=== PATIENT | female | born 2000 | race Caucasian/White ===

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

== ENCOUNTER 2018-05-10 08:59 | Outpatient (CLI) | payer BC ==
[2018-05-10 17:28] LABS: BASOPHILS # (AUTO) 0.1 10^3/uL (0.0-0.1); BASOPHILS % (AUTO) 0.9 %; EOSINOPHILS # (AUTO) 0.1 10^3/uL (0.0-0.7); EOSINOPHILS % (AUTO) 1.9 %; HGB - HEMOGLOBIN 13.3 g/dL (12.0-16.0); LYMPHOCYTES # (AUTO) 1.9 10^3/uL (1.5-3.5); LYMPHOCYTES % (AUTO) 25.6 %; MEAN CORPUSCULAR HEMOGLOBIN 31.3 pg (27.0-31.0); MEAN CORPUSCULAR HGB CONC 34.6 g/dL (32.0-36.0); MEAN CORPUSCULAR VOLUME 90.5 fL (81.0-99.0); MEAN PLATELET VOLUME 8.8 fL (7.9-10.8); MONOCYTES # (AUTO) 0.5 10^3/uL (0.0-1.0); MONOCYTES % (AUTO) 6.7 %; NEUTROPHILS # (AUTO) 4.8 10^3/uL (1.5-6.6); NEUTROPHILS % (AUTO) 64.9 %; PLT - PLATELET COUNT 346 10^3/uL (130-450); RED BLOOD COUNT 4.26 10^6/uL (4.20-5.40); RED CELL DISTRIBUTION WIDTH 12.4 % (12.0-15.0); WHITE BLOOD COUNT 7.3 x10^3/uL (4.8-10.8)
[2018-05-10 17:54] LABS: ALBUMIN 4.6 g/dL (3.2-5.5); ALBUMIN/GLOBULIN RATIO 1.5 (1.0-2.2); BILIRUBIN,TOTAL 0.5 mg/dL (0.2-1.0); CALCIUM 9.3 mg/dL (8.5-10.3); CREATININE 0.8 mg/dL (0.4-1.0); TOTAL PROTEIN 7.6 g/dL (6.7-8.2)
[2018-05-10 18:30] LABS: HB2 TOTAL 14.1 g/dL; HEMOGLOBIN A1C 0.5 g/dL; HEMOGLOBIN A1C % 5.4 % (4.6-6.2)
== END 2018-05-10 09:00 | disposition home or self-care (01) ==
LOC: LAB.F 08:59
PROVIDERS: ATTEND Nurse Practitioner Family
DX: R42 Dizziness and giddiness (principal); F32.9 Major depressive disorder, single episode, unspecified
CPT/HCPCS: 36415; 80053; 83036; 84443; 85025

== ENCOUNTER 2018-08-16 15:53 | Outpatient (CLI) | payer OTHER ==
[2018-08-17 12:42] LABS: HEPATITIS B SURFACE ANTIGEN NON-REACTIVE (NON-REACTIVE)
[2018-08-17 12:43] LABS: HEPATITIS C ANTIBODY NON-REACTIVE (NON-REACTIVE)
[2018-08-17 13:21] LABS: HIV AG/AB 4TH GEN NON-REACTIVE (NON-REACTIVE)
[2018-08-18 13:10] LABS: HSV 1 IGG TYPE SPECIFIC AB <0.90 index; HSV 2 IGG TYPE SPECIFIC AB <0.90 index
== END 2018-08-16 15:54 | disposition home or self-care (01) ==
LOC: LAB 15:53
PROVIDERS: ATTEND Nurse Practitioner Obstetrics & Gynecology
DX: Z11.3 Encounter for screening for infections with a predominantly sexual mode of transmission (principal)
CPT/HCPCS: 36415; 81599; 86592; 86695; 86696; 86803; 87340; 87389

== ENCOUNTER 2018-08-17 08:00 | Outpatient (CLI) | payer OTHER | END 2018-08-17 23:59 | disposition home or self-care (01) | LOC: LAB.R 08:00 | PROVIDERS: ATTEND Nurse Practitioner Obstetrics & Gynecology | DX: N76.0 Acute vaginitis (principal); Z11.3 Encounter for screening for infections with a predominantly sexual mode of transmission | CPT/HCPCS: 87480; 87491; 87510; 87591; 87660 ==

== ENCOUNTER 2019-01-28 | Outpatient (CLI) | payer OTHER | END 2019-01-28 07:12 | disposition home or self-care (01) ==

== ENCOUNTER 2019-03-16 08:00 | Outpatient (CLI) | payer OTHER | END 2019-03-16 23:59 | LOC: LAB.R 08:00 | PROVIDERS: ATTEND Family Medicine | DX: N39.0 Urinary tract infection, site not specified (principal) | CPT/HCPCS: 87077; 87086 ==

== ENCOUNTER 2019-03-19 21:55 | Emergency (ER) | payer OTHER ==
[2019-03-19 22:52] LABS: BILIRUBIN,URINE NEGATIVE (NEGATIVE); GLUCOSE, URINE (UA) NEGATIVE (NEGATIVE); KETONES,URINE (UA) NEGATIVE (NEGATIVE); LEUKOCYTE ESTERASE, URINE NEGATIVE (NEGATIVE); NITRITE,URINE NEGATIVE (NEGATIVE); OCCULT BLOOD,URINE NEGATIVE (NEGATIVE); PROTEIN,URINE NEGATIVE (NEGATIVE); UROBILINOGEN,URINE 0.2 (NORMAL) E.U./dL (NORMAL)
[2019-03-19 22:54] LABS: CLARITY,URINE CLEAR (CLEAR); HCG UR QUAL NEGATIVE
--- NOTE | 2019-03-19 23:53 | ED Physician Documentation ---
PD HPI BACK PAIN - Stated complaint Stated Complaint: BK PX - Chief complaint Chief Complaint: Back Pain - History obtained from History obtained from: Patient - History of Present Illness Timing - onset: How many days ago (5) Timing - duration: Days (5) Timing - details: Abrupt onset, Waxing and waning Pain level now: 6 Location: Lower, Right, Left Quality: Pain Associated symptoms: No: Fever, Weakness, Numbness, Hematuria Improves with: Nothing Worsened by: Other (urination) Recently seen: Clinic - Additional information Additional information: returned from [place] last weekend. 5 days ago (Thursday), she had sudden onset of painful dysuria. This was then recurrent (burning pain with urination) and thus seen at [facility] 3 days ago, rx macrobid. Presents due to worsening pain across mid/lower back, significantly worse on right. The dysuria has improved. Review of Systems Constitutional: denies: Fever, Chills, Sweats GI: denies: Abdominal Pain, Nausea, Vomiting : reports: Dysuria. denies: Frequency, Hematuria Skin: denies: Rash Musculoskeletal: reports: Back pain PD PAST MEDICAL HISTORY - Past Medical History Past Medical History: Yes Cardiovascular: None Respiratory: None Neuro: None Endocrine/Autoimmune: None GI: None SEO ANALYST: None : Other HEENT: None Psych: None Musculoskeletal: None Derm: None - Past Surgical History Past Surgical History: Yes - Present Medications Home Medications: Ambulatory Orders Medication Instructions Recorded Confirmed Cephalexin [Keflex] 500 mg PO BID #14 capsule 08/07/16 Penicillin V Potassium 500 mg PO BID #14 tablet 08/07/16 Hydrocodone/Acetaminophen 1 each PO Q6HR PRN #14 tablet 03/20/19 [Hydrocodone-Acetamin 5-325 mg] - Allergies Allergies/Adverse Reactions: Allergies Allergy/AdvReac Type Severity Reaction Status Date / Time codeine Allergy Unknown Verified 06/21/16 13:38 latex Allergy Unknown Verified 06/21/16 13:38 Sulfa (Sulfonamide Allergy Hives Verified 06/21/16 13:39 Antibiotics) - Social History Does the pt smoke?: No Smoking Status: Never smoker Does the pt drink ETOH?: No Does the pt have substance abuse?: No - Immunizations Immunizations are current?: Yes - POLST Patient has POLST: No PD ED PE NORMAL - Vitals Vital signs reviewed: Yes - General General: Alert and oriented X 3, No acute distress, Well developed/nourished - Abdomen Abdomen: Soft, Non tender - Back Back: No CVA TTP, No spinal TTP, Other - Derm Derm: Normal color, Warm and dry, No rash - Extremities Extremities: No edema Results - Vitals Vitals: Vital Signs - 24 hr 03/19/19 03/19/19 03/19/19 22:05 22:52 23:58 Temperature 37.0 C Heart Rate 86 Respiratory 17 16 17 Rate Blood Pressure 142/91 H O2 Saturation 100 03/20/19 03/20/19 00:23 01:47 Temperature 36.5 C 36.5 C Heart Rate 92 84 Respiratory 17 16 Rate Blood Pressure 144/91 H 137/84 H O2 Saturation 98 98 Oxygen O2 Source Room air - Labs Labs: Laboratory Tests 03/19/19 22:45 Urine Color YELLOW Urine Clarity CLEAR Urine pH 7.0 Ur Specific [place] 1.010 Urine Protein NEGATIVE Urine Glucose (UA) NEGATIVE Urine Ketones NEGATIVE Urine Occult Blood NEGATIVE Urine Nitrite NEGATIVE Urine Bilirubin NEGATIVE Urine Urobilinogen 0.2 (NORMAL) Ur Leukocyte Esterase NEGATIVE Ur Microscopic Review NOT INDICATED Urine Culture Comments NOT INDICATED Urine HCG, Qual NEGATIVE - Rads (name of study) CT A/P Radiology: Prelim report reviewed, See rad report PD MEDICAL DECISION MAKING - ED course Complexity details: reviewed results, re-evaluated patient, considered differential, d/w patient Departure - Departure Disposition: 01 Home, Self Care Clinical Impression: Back pain, Flank pain Condition: Good Instructions: ED Flank Pain Uncertain Cause Follow-Up: Caryl Mulligan ARNP [Primary Care Provider] - Within 3 Days Prescriptions: Hydrocodone/Acetaminophen [Hydrocodone-Acetamin 5-325 mg] 1 each PO Q6HR PRN #14 tablet PRN Reason: Pain Comments: Your CT scan shows multiple small kidney stones; however, these are located in the kidneys and therefore are not causing symptoms at this time (pain from a kidney stone occurs when the stone is in the ureter, which is the tube that connects the kidney to the bladder. Your CT scan does not show any stones in either ureter at this time). Discharge Date/Time: 03/20/19 01:51
[2019-03-20] MEDS ORDERED: KETOROLAC 60 MG/2 ML VIAL IM STA (00:09)
--- NOTE | 2019-03-20 00:45 | CT Report ---
Reason: right flank pain Procedure Date: 03/20/2019 Accession Number: [id number] / [id number] Procedure: CT - Abdomen/Pelvis WO CPT Code: FULL RESULT: EXAM: CT ABDOMEN AND PELVIS (CT KUB) EXAM DATE: 03/20/2019 12:21 AM. CLINICAL HISTORY: Right flank pain. COMPARISONS: None. TECHNIQUE: Routine axial helical CT imaging was performed through the abdomen and pelvis without IV contrast. Reconstructions: Coronal and sagittal. In accordance with CT protocol optimization, one or more of the following dose reduction techniques were utilized for this exam: automated exposure control, adjustment of mA and/or KV based on patient size, or use of iterative reconstructive technique. FINDINGS: Lung Bases: Unremarkable. Kidney/Ureters: Several small bilateral nonobstructing renal stones measuring up to 2 x 2 mm on the right. No definitive ureteral stone or hydronephrosis. Incidental duplicated left kidney. Other Solid Organs: Noncontrast images of the solid organs are grossly unremarkable. Gallbladder/Bile Ducts: Unremarkable. Peritoneal Cavity: No free fluid, free air or arsen adenopathy. Bowel is grossly unremarkable with note of moderate stool burden. Normal appendix. Pelvic Organs: No bladder stones or wall thickening. Noncontrast images of the visualized pelvic organs are unremarkable with note of an IUD. Vasculature: Unremarkable. Other: None. IMPRESSION: 1. Several small bilateral nonobstructing renal stones without definitive ureteral stone or hydronephrosis. 2. Moderate stool burden. RADIA
[2019-03-20] MEDS ORDERED: HYDROcod/ACET 5/325 Prepack 4 PO STA (01:30)
[2019-03-20 01:47] VITALS: BP 137/84
== END 2019-03-20 01:51 | disposition home or self-care (01) ==
LOC: ED 21:55
DX: M54.5 Low back pain (principal); R10.9 Unspecified abdominal pain
CPT/HCPCS: 74176; 81001; 81003; 81025; 87086; 96372; 99284

== ENCOUNTER 2020-03-06 19:30 | Outpatient (CLI) | payer OTHER | END 2020-03-06 23:59 | LOC: SC 19:30 | PROVIDERS: ATTEND Internal Medicine Pulmonary Disease | DX: G47.10 Hypersomnia, unspecified (principal); R53.83 Other fatigue; R51 Headache; R41.89 Other symptoms and signs involving cognitive functions and awareness | CPT/HCPCS: 95806 ==

== ENCOUNTER 2020-04-13 17:52 | Outpatient (CLI) | payer OTHER ==
--- NOTE | 2020-04-13 16:33 | SLEEP CARE CONSULTATION ---
"Information from patient questionnaire entered by Dottie Messina. I have reviewed and concur with the information entered by Dottie Messina. This document represents the service I personally performed and the decisions made by , Marquita oNlasco ARNP. History of Present Illness Service Date and Time: 04/13/2020 1620 Initial [place] Sleepiness Scale score: 6 Current [place] Sleepiness Scale score: 6 Additional HPI information: QUINTIN BROWN visits via Telehealth today for follow up and results of the recently performed home sleep study. The patient was informed of the following findings: Patient had no significant sleep disordered breathing with an average AHI 1.8 and selina oxygen saturation of 78.1% and average oxygen saturation of 97.6%. I explained the pathophysiology behind obstructive sleep apnea. Patient does not have sleep apnea and was advised how weight gain could increase the risk of developing sleep apnea in the future. Patient counseled not drink alcohol less than 4 hours before bedtime as it can increase snoring and apnea. Patient denies drowsy driving. Sleep Study - Results Type of Sleep Study: Home sleep study Prior sleep studies: Yes Year and Where: 2019 [facility] Allergies and Home Medications Drug allergies reviewed: Yes (same) Home medication list reviewed: Yes (no changes) Review of Systems Review of systems same as previous: Yes (no changes) Physical Exam Height: 5 ft 4 in Impression and Plan 1. Fatigue, of unclear etiology. Patient sleep study negative for sleep disordered breathing. Chronic fatigue may have many causes, but she does not appear to have sleep apnea or snoring issues. She was advised to follow up with her PCP for further evaluation of cause of her fatigue. * Attempt to lose weight * Avoid alcohol consumption near bedtime * The patient is cautioned about driving until sleepiness is completely resolved. * Return as needed for worsening symptoms or change in symptoms. Follow up with: PCP Visit Type: Telehealth Video Video Type: SL[employer]Z | [employer] Patient Location: Home Location of Provider: Home Patient agrees and consents to this telehealth visit type: Yes Patient agrees to have their insurance billed: Yes Time Spent with Patient (minutes): 15 Provider Statement: I spent 100% of the Telehealth Video Call with the patient with greater than 50% spent counseling the patient and coordination of care."
== END 2020-04-13 17:53 | disposition home or self-care (01) ==
LOC: SC 17:52
PROVIDERS: ATTEND Nurse Practitioner Family
DX: R53.83 Other fatigue (principal)

== ENCOUNTER 2020-09-01 08:09 | Outpatient (CLI) | payer OTHER ==
--- NOTE | 2020-09-01 10:59 | Ultrasound Report ---
PROCEDURE: Pelvic w/Transvaginal INDICATIONS: IUD SUVEILLANCE TECHNIQUE: Real-time scanning was performed of the pelvic organs, with image documentation. Additional endovagi nal scanning was necessary due to incomplete visualization of the adnexal and endometrial structures by transabdominal scanning. COMPARISON: None. FINDINGS: No pathologic free abdominal or pelvic fluid. Uterus: Uterus is normal in size at 7.0 x 3.2 x 4.2 cm. Uterine volume is 48.9 mL. The endometrium m easures 4 mm in combined thickness. Satisfactory location of IUD. Ovaries: Right ovary measures 5.0 x 2.7 x 3.7 cm and contains a prominent cyst measuring 4.4 x 2.0 x 2.6 cm. Left ovary measures 3.1 x 2.2 x 2.2 cm. There is bilateral intraovarian flow. IMPRESSION: 1. IUD in satisfactory position. 2. Incidental note made of 4.4 cm maximum diameter right ovarian cyst. Reviewed by: Christian Marcum MD on 09/01/2020 9:57 AM [facility] Approved by: Christian Marcum MD on 09/01/2020 9:57 AM [facility] Station ID: [id number]
== END 2020-09-01 08:10 | disposition home or self-care (01) ==
LOC: DI 08:09
PROVIDERS: ATTEND Obstetrics & Gynecology
DX: Z30.431 Encounter for routine checking of intrauterine contraceptive device (principal)

== ENCOUNTER 2020-09-02 07:00 | Outpatient (CLI) | payer OTHER | END 2020-09-02 23:59 | disposition home or self-care (01) | LOC: COV 07:00 | PROVIDERS: ATTEND Physician Assistant | DX: J02.9 Acute pharyngitis, unspecified (principal); Z20.822 Contact with and (suspected) exposure to COVID-19 | CPT/HCPCS: 87070; 87275; 87276 ==

== ENCOUNTER 2020-11-20 07:14 | Outpatient (CLI) | payer OTHER ==
[2020-11-20 15:05] LABS: BASOPHILS # (AUTO) 0.1 10^3/uL (0.0-0.1); BASOPHILS % (AUTO) 1.1 %; EOSINOPHILS # (AUTO) 0.2 10^3/uL (0.0-0.7); EOSINOPHILS % (AUTO) 3.8 %; HCT - HEMATOCRIT 38.8 % (37.0-47.0); HGB - HEMOGLOBIN 12.7 g/dL (12.0-16.0); LYMPHOCYTES # (AUTO) 1.1 10^3/uL (1.5-3.5); LYMPHOCYTES % (AUTO) 18.7 %; MEAN CORPUSCULAR HEMOGLOBIN 31.1 pg (27.0-31.0); MEAN CORPUSCULAR HGB CONC 32.7 g/dL (32.0-36.0); MEAN CORPUSCULAR VOLUME 95.1 fL (81.0-99.0); MEAN PLATELET VOLUME 10.6 fL (7.9-10.8); MONOCYTES # (AUTO) 0.7 10^3/uL (0.0-1.0); MONOCYTES % (AUTO) 11.5 %; NEUTROPHILS % (AUTO) 64.7 %; PLT - PLATELET COUNT 375 10^3/uL (130-450); RED BLOOD COUNT 4.08 10^6/uL (4.20-5.40); WHITE BLOOD COUNT 6.1 x10^3/uL (4.8-10.8)
[2020-11-20 15:26] LABS: ALBUMIN 4.7 g/dL (3.2-5.5); ALBUMIN/GLOBULIN RATIO 1.4 (1.0-2.2); BILIRUBIN,TOTAL 0.4 mg/dL (0.2-1.0); CALCIUM 9.1 mg/dL (8.5-10.3); CREATININE 0.8 mg/dL (0.4-1.0); POTASSIUM 3.6 mmol/L (3.5-5.0)
[2020-11-20 15:35] LABS: THYROID STIMULATING HORMONE 1.87 uIU/mL (0.34-5.60)
[2020-11-20 15:40] LABS: FERRITIN 85.7 ng/mL (11.0-306.8)
== END 2020-11-20 07:15 | disposition home or self-care (01) ==
LOC: LAB.S 07:14
PROVIDERS: ATTEND Registered Nurse
DX: G43.909 Migraine, unspecified, not intractable, without status migrainosus (principal); R53.83 Other fatigue; R10.32 Left lower quadrant pain; R10.31 Right lower quadrant pain
CPT/HCPCS: 36415; 80053; 82728; 83540; 84443; 84466; 85025

== ENCOUNTER 2021-03-20 07:07 | Outpatient (CLI) | payer OTHER ==
[2021-03-20 14:29] LABS: % IRON SATURATION 32 % (20-50); IRON 84 ug/dL (28-170); TOTAL IRON BINDING CAPACITY 263 ug/dL (250-450); TRANSFERRIN 188 mg/dL (192-382)
[2021-03-20 14:41] LABS: BASOPHILS # (AUTO) 0.1 10^3/uL (0.0-0.1); BASOPHILS % (AUTO) 0.8 %; EOSINOPHILS # (AUTO) 0.1 10^3/uL (0.0-0.7); EOSINOPHILS % (AUTO) 1.8 %; HCT - HEMATOCRIT 39.8 % (37.0-47.0); HGB - HEMOGLOBIN 12.8 g/dL (12.0-16.0); LYMPHOCYTES # (AUTO) 1.7 10^3/uL (1.5-3.5); LYMPHOCYTES % (AUTO) 25.8 %; MEAN CORPUSCULAR HEMOGLOBIN 30.6 pg (27.0-31.0); MEAN CORPUSCULAR HGB CONC 32.2 g/dL (32.0-36.0); MEAN CORPUSCULAR VOLUME 95.2 fL (81.0-99.0); MEAN PLATELET VOLUME 10.7 fL (7.9-10.8); MONOCYTES # (AUTO) 0.5 10^3/uL (0.0-1.0); MONOCYTES % (AUTO) 7.6 %; NEUTROPHILS # (AUTO) 4.2 10^3/uL (1.5-6.6); NEUTROPHILS % (AUTO) 63.7 %; PLT - PLATELET COUNT 358 10^3/uL (130-450); RED BLOOD COUNT 4.18 10^6/uL (4.20-5.40); RED CELL DISTRIBUTION WIDTH 11.9 % (12.0-15.0); WHITE BLOOD COUNT 6.5 x10^3/uL (4.8-10.8)
== END 2021-03-20 07:08 | disposition home or self-care (01) ==
LOC: LAB.S 07:07
PROVIDERS: ATTEND Registered Nurse
DX: R53.83 Other fatigue (principal)
CPT/HCPCS: 36415; 83540; 84466; 85025

== ENCOUNTER 2021-06-23 08:00 | Outpatient (CLI) | payer OTHER ==
--- NOTE | 2021-06-23 14:33 | XRAY Report ---
PROCEDURE: Knee 3 View LT INDICATIONS: CONTUSION OF LEFT KNEE TECHNIQUE: 3 views of the left knee(s) were acquired. COMPARISON: None. FINDINGS: Bones: No fractures or dislocations. No suspicious bony lesions. Soft tissues: No joint effusion. No suspicious soft tissue calcifications. IMPRESSION: Normal left knee Reviewed by: Ashu Cruz on 06/23/2021 1:32 PM [facility] Approved by: Ashu Cruz on 06/23/2021 1:[address] [facility] Station ID: [id number]
== END 2021-06-23 23:59 | disposition home or self-care (01) ==
LOC: DI.S 08:00
PROVIDERS: ATTEND Physician Assistant Medical
DX: S80.02XA Contusion of left knee, initial encounter (principal)

== ENCOUNTER 2021-08-06 07:02 | Outpatient (CLI) | payer OTHER ==
[2021-08-07 12:17] LABS: HEPATITIS B SURFACE ANTIGEN NON-REACTIVE (NON-REACTIVE)
[2021-08-07 13:36] LABS: HIV AG/AB 4TH GEN NON-REACTIVE (NON-REACTIVE)
[2021-08-09 12:31] LABS: HSV 1 IGG TYPE SPECIFIC AB 0.99 index; HSV 2 IGG TYPE SPECIFIC AB <0.90 index
== END 2021-08-06 07:03 | disposition home or self-care (01) ==
LOC: LAB.S 07:02
PROVIDERS: ATTEND Obstetrics & Gynecology
DX: Z11.3 Encounter for screening for infections with a predominantly sexual mode of transmission (principal)
CPT/HCPCS: 36415; 81599; 86592; 86695; 86696; 87340; 87389

== ENCOUNTER 2022-03-25 08:00 | Outpatient (CLI) | payer OTHER ==
[2022-03-25 18:18] LABS: BACTERIAL VAGINOSIS DNA NEGATIVE (NEGATIVE); CANDIDA KRUSEI DNA NEGATIVE (NEGATIVE)
[2022-03-25 18:19] LABS: CANDIDA GLABRATA DNA NEGATIVE (NEGATIVE); CANDIDA GROUP DNA NEGATIVE (NEGATIVE); TRICHOMONAS VAGINALIS DNA NEGATIVE (NEGATIVE)
[2022-03-25 20:05] LABS: CHLAMYDIA TRACHOMATIS DNA NEGATIVE (NEGATIVE); NEISSERIA GONORRHOEAE DNA NEGATIVE (NEGATIVE)
== END 2022-03-25 23:59 | disposition home or self-care (01) ==
LOC: LAB.WC 08:00
PROVIDERS: ATTEND Nurse Practitioner
DX: N89.8 Other specified noninflammatory disorders of vagina (principal)
CPT/HCPCS: 81514; 87491; 87591; 87661

== ENCOUNTER 2022-03-25 13:37 | Outpatient (CLI) | payer OTHER ==
[2022-03-25 13:52] LABS: HCT - HEMATOCRIT 40.7 % (37.0-47.0); HGB - HEMOGLOBIN 13.8 g/dL (12.0-16.0); MEAN CORPUSCULAR HEMOGLOBIN 31.3 pg (27.0-31.0); MEAN CORPUSCULAR HGB CONC 33.9 g/dL (32.0-36.0); MEAN CORPUSCULAR VOLUME 92.3 fL (81.0-99.0); RED BLOOD COUNT 4.41 10^6/uL (4.20-5.40); RED CELL DISTRIBUTION WIDTH 11.4 % (12.0-15.0); WHITE BLOOD COUNT 10.1 x10^3/uL (4.8-10.8)
[2022-03-26 09:44] LABS: ALBUMIN 4.7 g/dL (3.2-5.5); ALBUMIN/GLOBULIN RATIO 1.6 (1.0-2.2); BILIRUBIN,TOTAL 0.4 mg/dL (0.2-1.0); CALCIUM 9.5 mg/dL (8.5-10.3); CREATININE 0.8 mg/dL (0.4-1.0); POTASSIUM 3.8 mmol/L (3.5-5.0); TOTAL PROTEIN 7.7 g/dL (6.7-8.2)
== END 2022-03-25 13:38 | disposition home or self-care (01) ==
LOC: LAB 13:37
PROVIDERS: ATTEND Nurse Practitioner
DX: D64.9 Anemia, unspecified (principal); N89.8 Other specified noninflammatory disorders of vagina; N93.9 Abnormal uterine and vaginal bleeding, unspecified; Z84.1 Family history of disorders of kidney and ureter
CPT/HCPCS: 36415; 80053; 81514; 82728; 85027; 87491; 87591; 87661

== ENCOUNTER 2022-04-02 18:41 | Outpatient (CLI) | payer OTHER ==
--- NOTE | 2022-04-03 16:21 | Ultrasound Report ---
PROCEDURE: Pelvic w/Transvaginal INDICATIONS: IUD SURVEILLANCE, ABN UTERINE BLEEDING TECHNIQUE: Real-time scanning was performed of the pelvic organs, with image documentation. Additional endovagi nal scanning was necessary due to incomplete visualization of the adnexal and endometrial structures by transabdominal scanning. COMPARISON: None. FINDINGS: Uterus: Uterus is anteverted and normal in size at 8.5 x 3.0 x 4.6 cm. The myometrium is homogeneou s. The endometrium measures 4.1 mm in combined thickness. IUD is present in appropriate position Ovaries: The right ovary measures 5.4 x 3.4 x 5.4 cm, with a calculated ovarian volume of 52 cc. Th e left ovary measures 3.6 x 1.7 x 3.4 cm, with a calculated ovarian volume of 10.8 cc. Complex focus of echogenicity is noted within the right ovary. Less than 12 follicles can be seen in each ovary. N o adnexal masses are seen. Other: No pathologic free abdominal or pelvic fluid. IMPRESSION: IUD in appropriate position. Complex focus of echogenicity within the right ovary possibly hemorrhagic cyst. Reviewed by: Ashley Isaacs MD on 04/03/2022 4:20 PM PDT Approved by: Ashley Isaacs MD on 04/03/2022 4:20 PM PDT Station ID: [id number]
== END 2022-04-02 18:42 | disposition home or self-care (01) ==
LOC: DI 18:41
PROVIDERS: ATTEND Nurse Practitioner
DX: N93.9 Abnormal uterine and vaginal bleeding, unspecified (principal); R10.2 Pelvic and perineal pain; Z30.431 Encounter for routine checking of intrauterine contraceptive device

== ENCOUNTER 2022-06-09 08:28 | Outpatient (CLI) | payer OTHER ==
[2022-06-09 08:47] LABS: BASOPHILS # (AUTO) 0.1 10^3/uL (0.0-0.1); BASOPHILS % (AUTO) 0.6 %; EOSINOPHILS # (AUTO) 0.1 10^3/uL (0.0-0.7); EOSINOPHILS % (AUTO) 0.9 %; HCT - HEMATOCRIT 37.2 % (37.0-47.0); HGB - HEMOGLOBIN 12.7 g/dL (12.0-16.0); LYMPHOCYTES # (AUTO) 1.8 10^3/uL (1.5-3.5); LYMPHOCYTES % (AUTO) 22.6 %; MEAN CORPUSCULAR HEMOGLOBIN 31.4 pg (27.0-31.0); MEAN CORPUSCULAR HGB CONC 34.1 g/dL (32.0-36.0); MEAN CORPUSCULAR VOLUME 91.9 fL (81.0-99.0); MEAN PLATELET VOLUME 9.6 fL (7.9-10.8); MONOCYTES # (AUTO) 0.6 10^3/uL (0.0-1.0); MONOCYTES % (AUTO) 6.7 %; NEUTROPHILS # (AUTO) 5.6 10^3/uL (1.5-6.6); NEUTROPHILS % (AUTO) 69.1 %; PLT - PLATELET COUNT 312 10^3/uL (130-450); RED BLOOD COUNT 4.05 10^6/uL (4.20-5.40); RED CELL DISTRIBUTION WIDTH 11.7 % (12.0-15.0); WHITE BLOOD COUNT 8.2 x10^3/uL (4.8-10.8)
== END 2022-06-09 08:29 | disposition home or self-care (01) ==
LOC: LAB 08:28
PROVIDERS: ATTEND Obstetrics & Gynecology
DX: Z01.812 Encounter for preprocedural laboratory examination (principal); N83.291 Other ovarian cyst, right side
CPT/HCPCS: 36415; 85025; 86850; 86900; 86901

== ENCOUNTER 2022-06-10 08:44 | Day surgery (SDC) | payer OTHER ==
[2022-06-10 09:13] LABS: HCG UR QUAL NEGATIVE
[2022-06-10] MEDS ORDERED: BUPIVACAINE 0.25% PF 10 ML VIAL ONE (09:14)
[2022-06-10] MEDS ORDERED: LACTATED RINGERS 1,000 ML IV ONE ×2 (09:25→12:01)
[2022-06-10] MEDS ORDERED: fentaNYL 100 MCG/2 ML VIAL ONE ×2 (09:29→11:49)
[2022-06-10] MEDS ORDERED: MIDAZOLAM 2 MG/2 ML VIAL ONE (09:29)
[2022-06-10] MEDS ORDERED: ROCURONIUM 50 MG/5 ML VIAL ONE (09:30)
[2022-06-10] MEDS ORDERED: PROPOFOL 200 MG/20 ML VIAL IVP ONE (09:31)
--- NOTE | 2022-06-10 09:40 | ANESTHESIA ---
Pre-Anesthesia VS, & Labs - Diagnosis right ovarian cyst - Procedure right ovarian cystectomy, laparoscopic Vital Signs: Temp Pulse Resp BP Pulse Ox O2 Flow Rate 36.6 C 86 19 132/78 H 100 06/10/22 09:04 06/10/22 09:04 06/10/22 09:04 06/10/22 09:04 06/10/22 09:04 Height: 5 ft 3 in Weight (kg): 58.6 kg Body Mass Index: 22.8 BMI Classification: Normal - NPO >8 hours - Is Patient ?: No Home Medications and Allergies Home Medications: Ambulatory Orders Loratadine [All Day Allergy Relief] 10 mg PO DAILY PRN 06/06/22 Meloxicam [Mobic] 15 mg PO DAILY PRN 06/06/22 Loratadine [All Day Allergy Relief] 10 mg PO DAILY PRN 06/06/22 Meloxicam [Mobic] 15 mg PO DAILY PRN 06/06/22 Allergies/Adverse Reactions: Allergies Allergy/AdvReac Type Severity Reaction Status Date / Time codeine Allergy Hives Verified 06/06/22 09:49 latex Allergy Anaphylaxis Verified 06/06/22 09:49 Sulfa (Sulfonamide Allergy Hives Verified 06/21/16 13:39 Antibiotics) gluten AdvReac abdominal Verified 06/06/22 09:52 pain and bloating, migraines lactose AdvReac abdominal Verified 06/06/22 09:52 pain and bloating, migraines Anes History & Medical History - Anesthetic History Anesthesia Complications: reports: Post-Operative Nausea/Vomiting - Medical History Cardiovascular: reports: Murmur (benign murmur per patient.) Pulmonary: reports: None Gastrointestinal: reports: None Urinary: reports: None Neuro: reports: None Musculoskeletal: reports: Fatigue Endocrine/Autoimmune: reports: None Blood Disorders: reports: None Skin: reports: Eczema Smoking Status: Never smoker Psychosocial: reports: Alcohol (rare) History of Cancer?: No Exam General: Alert, Oriented x3 Dental: WNL Mouth Opening: Greater than 4 Fingerbreadths Neck Mobility: Limited Mallampati classification: II Thyromental Distance: greater than 6 cm Respiratory: Lungs clear Cardiovascular: Regular rate, Normal S1, Normal S2, Other (1/) Plan Anesthesia Type: General Consent for Procedure(s) Verified and Reviewed: Yes Code Status: Attempt Resuscitation ASA classification: 2-Mild systemic disease Is this case an emergency?: No
[2022-06-10] MEDS ORDERED: NALOXONE 0.4 MG/ML VIAL IVP PRN (09:48)
[2022-06-10] MEDS ORDERED: fentaNYL 100 MCG/2 ML VIAL IVP PRN (09:48)
[2022-06-10] MEDS ORDERED: ATROPINE ABBOJECT 1 MG/10 ML SYRINGE IVP PRN (09:48)
[2022-06-10] MEDS ORDERED: ePHEDrine 50 MG/ML VIAL IVP PRN (09:48)
[2022-06-10] MEDS ORDERED: METOCLOPRAMIDE 10 MG/2 ML VIAL IVP PRN (09:48)
[2022-06-10] MEDS ORDERED: MORPHINE 2 MG/ML CARPUJECT IVP PRN (09:48)
[2022-06-10] MEDS ORDERED: HYDROmorphone 0.5 MG/0.5 ML SYRINGE IVP PRN (09:48)
[2022-06-10] MEDS ORDERED: ONDANSETRON 4 MG/2 ML VIAL IVP PRN (09:48)
[2022-06-10] MEDS ORDERED: LACTATED RINGERS 1,000 ML IV SCH (10:00)
[2022-06-10] MEDS ORDERED: DEXAMETHASONE 4 MG/ML VIAL ONE (10:21)
[2022-06-10] MEDS ORDERED: KETOROLAC 30 MG/ML VIAL ONE (10:21)
[2022-06-10] MEDS ORDERED: ONDANSETRON 4 MG/2 ML VIAL ONE (10:21)
[2022-06-10] MEDS ORDERED: ACETAMINOPHEN 1,000 MG/100 ML 1,000 MG/100 ML BAG IV ONE (10:29)
[2022-06-10] MEDS ORDERED: GLYCOPYRROLATE 1 MG/5 ML VIAL ONE (10:50)
[2022-06-10] MEDS ORDERED: BUPIVACAINE 0.25% PF 10 ML VIAL SUBQ ONE ×2 (11:14)
[2022-06-10] MEDS ORDERED: NEOSTIGMINE 1 MG/1 ML 10 ML MDV ONE (11:28)
[2022-06-10] MEDS ORDERED: HYDROmorphone 0.5 MG/0.5 ML SYRINGE ONE (12:26)
--- NOTE | 2022-06-10 12:44 | ANESTHESIA POST OP EVALUATION ---
Anesthesia Post Eval - Post Anesthesia Eval Vitals: Last Vital Signs Temp 36.5 C 06/10/22 12:30 Pulse 88 06/10/22 12:35 Resp 12 06/10/22 12:35 BP 118/69 06/10/22 12:35 Pulse Ox 100 06/10/22 12:35 O2 Flow Rate CV Function Including HR & BP: Stable Pain Control: Satisfactory Nausea & Vomiting: Negative Mental Status: Baseline Respiratory Status: Airway Patent Hydration Status: Satisfactory Anesthesia Complications: None
[2022-06-10 13:00] VITALS: BP 106/91
--- NOTE | 2022-06-10 13:57 | OPERATIVE REPORT ---
Operative Report - General Planned Procedure: Laparoscopic right ovarian cystectomy Pre-Op Diagnosis: Right ovarian cyst, pelvic pain Procedure Performed: Laparoscopic right ovarian cystectomy Post Op Diagnosis: Right ovarian cyst, pelvic pain - Procedure Note Primary Surgeon: Vicky Clarke DO Secondary Surgeon: Mihai Houser; assistance required for retraction and safe completion Anesthesia Provider: Charlie Dillon CRNA Anesthesia Technique: General ET tube Pathology: Right ovarian cyst Estimated Blood Loss (mL): 40 Indications: Right ovarian cyst, pelvic pain Findings: Right ovarian cyst ~5cm Normal appearing uterus and bilateral tubes, normal left ovary Complications: None - Other Other Information/Narrative: Patient taken to OR where GETA obtained without difficulty. Placed in dorsal lithotomy position and prepped and draped in sterile fashion. [place] speculum placed in vagina and Hulka manipulator placed into uterus. Attention then turned to abdomen where 5mm vertical skin incision made in umbilical fold. Veress needle carefully introduced into peritoneal cavity and appropriate placement with drop in intraabdominal pressure. Direct visualization entry successful. Trocar and sleeve advanced without difficulty into abdomen where intraabdominal placement confirmed with laparoscope. 5mm trocar on right side and 11mm trocar on left side placed under direct visualization. 0.25% bupivacaine injection prior to skin incisions x3. Aforementioned findings noted. Scissors used to make incision in right ovary. Ovary incised and cyst wall identified. Dissection continued. Cyst ruptured during dissection, clear fluid noted. Pelvis irrigated and suctioned. Cyst wall grasped and from ovary, this was sent to pathology. Most of cyst wall thin and friable but efforts made to remove entirety of cyst wall that could be grasped. Hemostasis at all dissection sites. Ramon Tomason used to close 11mm incision left side with 0-Vicryl. Trocars removed under direct visualization. Pneumoperitoneum released. Umbilical trocar removed. Incisions x3 were closed with 4-0 monocryl and dermabond. Sponge, lap, needle, and instrument counts were correct x2. Patient taken to PACU in stable condition.
== END 2022-06-10 08:45 | disposition home or self-care (01) ==
LOC: SDS 08:44
PROVIDERS: ATTEND Obstetrics & Gynecology
PROC: 0UB04ZZ Excision of Right Ovary, Percutaneous Endoscopic Approach (ICD-10-PCS; principal; 2022-06-10 11:45)
DX: N83.201 Unspecified ovarian cyst, right side (principal); R10.2 Pelvic and perineal pain
CPT/HCPCS: 58662; 81025; J0131; J1170; J7120

== ENCOUNTER 2022-12-29 08:00 | Outpatient (CLI) | payer OTHER ==
[2022-12-29 18:13] LABS: CHLAMYDIA TRACHOMATIS DNA NEGATIVE (NEGATIVE); NEISSERIA GONORRHOEAE DNA NEGATIVE (NEGATIVE)
[2022-12-29 20:48] LABS: BACTERIAL VAGINOSIS DNA NEGATIVE (NEGATIVE); CANDIDA GLABRATA DNA NEGATIVE (NEGATIVE); CANDIDA GROUP DNA POSITIVE (NEGATIVE); CANDIDA KRUSEI DNA NEGATIVE (NEGATIVE); TRICHOMONAS VAGINALIS DNA NEGATIVE (NEGATIVE)
== END 2022-12-29 23:59 | disposition home or self-care (01) ==
LOC: LAB.WC 08:00
PROVIDERS: ATTEND Nurse Practitioner
DX: N89.8 Other specified noninflammatory disorders of vagina (principal); Z11.3 Encounter for screening for infections with a predominantly sexual mode of transmission
CPT/HCPCS: 81514; 87491; 87591; 87661

== ENCOUNTER 2023-06-05 08:00 | Outpatient (CLI) | payer OTHER | END 2023-06-05 23:59 | disposition home or self-care (01) | LOC: LAB.S 08:00 | PROVIDERS: ATTEND Physician Assistant Medical | DX: J02.9 Acute pharyngitis, unspecified (principal) | CPT/HCPCS: 87070 ==

== ENCOUNTER 2023-09-17 08:00 | Outpatient (CLI) | payer OTHER ==
[2023-09-17 22:34] LABS: CHLAMYDIA TRACHOMATIS DNA NEGATIVE (NEGATIVE); NEISSERIA GONORRHOEAE DNA NEGATIVE (NEGATIVE); TRICHOMONAS VAGINALIS DNA NEGATIVE (NEGATIVE)
== END 2023-09-17 23:59 | disposition home or self-care (01) ==
LOC: LAB.WC 08:00
PROVIDERS: ATTEND Nurse Practitioner
DX: Z11.3 Encounter for screening for infections with a predominantly sexual mode of transmission (principal)
CPT/HCPCS: 87491; 87591; 87661

== ENCOUNTER 2023-09-22 21:30 | Outpatient (CLI) | payer OTHER ==
--- NOTE | 2023-09-23 09:38 | Ultrasound Report ---
PROCEDURE: Pelvic Complete INDICATIONS: PELVIC PAIN, ABDOMINAL PAIN TECHNIQUE: Real-time transabdominal scanning was performed of the pelvic organs, with image documentation. Patie nt declined transvaginal exam. COMPARISON: Pelvic ultrasound on April 02, 2022 FINDINGS: Uterus: Uterus is anteverted and normal in size at 8.6 x 2.7 x 4.5 cm. The myometrium is homogeneou s. The endometrium measures 6.3 mm in combined thickness. IUD is in appropriate position on transab dominal views. Cervix and vagina are within normal limits. Ovaries: The right ovary measures 4.6 x 2.4 x 4.7 cm, with a calculated ovarian volume of 28.5 cc. The left ovary measures 2.2 x 1.4 x 2.7 cm, with a calculated ovarian volume of 4.3 cc. The ovaries have a normal sonographic appearance. Less than 12 follicles can be seen in each ovary. No adnexal masses are seen. No cystic lesions measuring greater than 3 cm. Complex cyst in the right ovary measu ring 2.6 x 2.9 x 2 cm, previously 4.8 x 3.4 x 5 cm. Other: No free pelvic fluid. IMPRESSION: 1.IUD is in appropriate position. 2.Complex right ovarian cyst has decreased in size measuring 2.6 x 2.9 x 2 cm, previously 4.8 x 3.4 x 5 cm on April 02, 2022, possibly a hemorrhagic cyst. Reviewed by: Dewayne Ireland MD on 09/23/2023 9:37 AM PDT Approved by: Dewayne Ireland MD on 09/23/2023 9:37 AM PDT Station ID: [id number]
== END 2023-09-22 21:31 | disposition home or self-care (01) ==
LOC: DI 21:30
PROVIDERS: ATTEND Nurse Practitioner
DX: R10.2 Pelvic and perineal pain (principal); R10.9 Unspecified abdominal pain; N83.201 Unspecified ovarian cyst, right side; Z97.5 Presence of (intrauterine) contraceptive device

== ENCOUNTER 2024-03-15 08:43 | Outpatient (CLI) | payer OTHER ==
--- NOTE | 2024-03-15 11:38 | XRAY Report ---
PROCEDURE: Lumbar Spine 2-3V INDICATIONS: BACK PAIN,LUMBAR, W RADICULOPATHY TECHNIQUE: 3 views of the lumbar spine were acquired. COMPARISON: None. FINDINGS: Surgical change: None. Bones: 5 [id number] vertebrae are present. There is normal bony alignment. No vertebral body co mpression fractures. No suspicious bony lesions. Normal disc spacing. Soft tissues: Overlying bowel gas pattern is normal. No suspicious soft tissue calcifications. IMPRESSION: Normal lumbar spine. Reviewed by: Oneida He MD on 03/15/2024 11:37 AM PDT Approved by: Oneida He MD on 03/15/2024 11:37 AM PDT Station ID: [id number]
--- NOTE | 2024-03-15 11:38 | XRAY Report ---
PROCEDURE: Thoracic Spine 2V INDICATIONS: THORACIC PAIN TECHNIQUE: 3 views of the thoracic spine were acquired. COMPARISON: None. FINDINGS: Bones: No fractures or dislocations. Normal disc spacing. No suspicious bony lesions. 12 pairs of ribs are noted, and appear intact where visualized. Soft tissues: No paravertebral stripe thickening. IMPRESSION: No acute bony abnormality. No significant degenerative change. Reviewed by: Oneida He MD on 03/15/2024 11:36 AM PDT Approved by: Oneida He MD on 03/15/2024 11:36 AM PDT Station ID: [id number]
== END 2024-03-15 08:44 | disposition home or self-care (01) ==
LOC: DI.S 08:43
PROVIDERS: ATTEND Registered Nurse
DX: M54.6 Pain in thoracic spine (principal); M54.16 Radiculopathy, lumbar region; K58.2 Mixed irritable bowel syndrome; Z83.79 Family history of other diseases of the digestive system; R00.0 Tachycardia, unspecified; R61 Generalized hyperhidrosis; R23.2 Flushing; R25.1 Tremor, unspecified; Z87.898 Personal history of other specified conditions; Z13.228 Encounter for screening for other metabolic disorders; Z13.29 Encounter for screening for other suspected endocrine disorder; Z13.0 Encounter for screening for diseases of the blood and blood-forming organs and certain disorders involving the immune mechanism; O92.6 Galactorrhea
CPT/HCPCS: 36415; 80053; 82306; 84146; 84443; 84702; 85025; 86141

== ENCOUNTER 2024-03-15 13:30 | Outpatient (CLI) | payer OTHER ==
[2024-03-15 13:55] LABS: BASOPHILS # (AUTO) 0.1 10^3/uL (0.0-0.1); BASOPHILS % (AUTO) 0.7 %; EOSINOPHILS # (AUTO) 0.1 10^3/uL (0.0-0.7); EOSINOPHILS % (AUTO) 0.7 %; HCT - HEMATOCRIT 42.9 % (37.0-47.0); HGB - HEMOGLOBIN 14.3 g/dL (12.0-16.0); LYMPHOCYTES % (AUTO) 23.6 %; MEAN CORPUSCULAR HGB CONC 33.3 g/dL (32.0-36.0); MEAN CORPUSCULAR VOLUME 92.9 fL (81.0-99.0); MEAN PLATELET VOLUME 9.5 fL (7.9-10.8); MONOCYTES # (AUTO) 0.6 10^3/uL (0.0-1.0); MONOCYTES % (AUTO) 6.6 %; NEUTROPHILS # (AUTO) 5.9 10^3/uL (1.5-6.6); NEUTROPHILS % (AUTO) 68.2 %; PLT - PLATELET COUNT 405 10^3/uL (130-450); RED BLOOD COUNT 4.62 10^6/uL (4.20-5.40); RED CELL DISTRIBUTION WIDTH 11.4 % (12.0-15.0); WHITE BLOOD COUNT 8.6 x10^3/uL (4.8-10.8)
[2024-03-15 14:12] LABS: ALBUMIN 4.5 g/dL (3.2-5.5); ALBUMIN/GLOBULIN RATIO 1.7 (1.0-2.2); ALKALINE PHOSPHATASE 53 IU/L (42-121); ALT ALANINE AMINOTRANSFERASE 9 IU/L (10-60); AST ASPARTATE AMINOTRANSFERASE 12 IU/L (10-42); BILIRUBIN,TOTAL 0.4 mg/dL (0.2-1.0); BUN - BLOOD UREA NITROGEN 12 mg/dL (6-20); CALCIUM 9.4 mg/dL (8.5-10.3); CARBON DIOXIDE - CO2 29 mmol/L (21-32); CHLORIDE 102 mmol/L (101-111); CREATININE 0.8 mg/dL (0.6-1.3); CRP HIGH SENSITIVITY 1.26 mg/L; GFR - MDRD 87 (>89); GLUCOSE 90 mg/dL (74-104); POTASSIUM 3.8 mmol/L (3.5-4.5); SODIUM 137 mmol/L (135-145); TOTAL PROTEIN 7.2 g/dL (6.4-8.9)
[2024-03-15 14:27] LABS: THYROID STIMULATING HORMONE 0.82 uIU/mL (0.34-5.60)
[2024-03-15 14:33] LABS: PROLACTIN 8.25 ng/mL
== END 2024-03-15 13:31 | disposition home or self-care (01) ==
LOC: LAB 13:30
PROVIDERS: ATTEND Registered Nurse
DX: K58.2 Mixed irritable bowel syndrome (principal); Z83.79 Family history of other diseases of the digestive system; R00.0 Tachycardia, unspecified; R61 Generalized hyperhidrosis; R23.2 Flushing; R25.1 Tremor, unspecified; Z87.898 Personal history of other specified conditions; Z13.228 Encounter for screening for other metabolic disorders; Z13.29 Encounter for screening for other suspected endocrine disorder; Z13.0 Encounter for screening for diseases of the blood and blood-forming organs and certain disorders involving the immune mechanism; O92.6 Galactorrhea
CPT/HCPCS: 36415; 80053; 82306; 84146; 84443; 84702; 85025; 86141

== ENCOUNTER 2024-03-15 13:50 | Outpatient (CLI) | payer OTHER ==
--- NOTE | 2024-03-16 15:31 | Ultrasound Report ---
LIMITED ULTRASOUND OF RIGHT BREAST: 03/15/2024 CLINICAL: Nipple discharge, both breasts, not bloody. Comparison is made to exam dated: 03/15/2024 ultrasound - [facility]. Color flow and real-time ultrasound of the right breast retroareolar were performed. Salguero scale imag es of the real-time examination were reviewed. No significant abnormalities were seen sonographically in the right breast. IMPRESSION: NEGATIVE There is no sonographic evidence of malignancy. There is no abnormality seen in the right breast to correspond with the non-bloody discharge from the nipple, however, clinical followup is recommended. Recommend annual screening mammograms beginning at age 40 if the patient is not at an increased risk for breast malignancy. This exam was interpreted at Station ID: [id number]. Electronically Signed By: Clayton Parham M.D. ar/:03/15/2024 21:03:04 letter sent: No_Letter ACR BI-RADS Category 1: Negative 3341F BI-RADS CATEGORY: (1) - 1 RECOMMENDATION: (ADDMAM) - Recommend additional mammographic views. no recall LATERALITY: (B)
--- NOTE | 2024-03-16 15:31 | Ultrasound Report ---
LIMITED ULTRASOUND OF LEFT BREAST: 03/15/2024 CLINICAL: Nipple discharge, both breasts, not bloody. No prior exams were available for comparison. Color flow and real-time ultrasound of the left breast retroareolar were performed. Salguero scale imag es of the real-time examination were reviewed. No significant abnormalities were seen sonographically in the left breast. IMPRESSION: NEGATIVE There is no sonographic evidence of malignancy. There is no abnormality seen in the left breast to correspond with the non-bloody discharge from the nipple, however, clinical followup is recommended. Recommend annual screening mammograms beginning at age 40 if the patient is not at an increased risk for breast malignancy. This exam was interpreted at Station ID: [id number]. Electronically Signed By: Clayton Parham M.D. ar/:03/15/2024 21:04:03 letter sent: No_Letter ACR BI-RADS Category 1: Negative 3341F BI-RADS CATEGORY: (1) - 1 RECOMMENDATION: (ADDMAM) - Recommend additional mammographic views. no recall/no msg LATERALITY: (B)
== END 2024-03-15 13:51 | disposition home or self-care (01) ==
LOC: DI 13:50
PROVIDERS: ATTEND Nurse Practitioner
DX: O92.6 Galactorrhea (principal); N64.4 Mastodynia

== ENCOUNTER 2024-03-20 08:00 | Outpatient (CLI) | payer OTHER | END 2024-03-20 08:01 | disposition home or self-care (01) | LOC: LAB.R 08:00 | PROVIDERS: ATTEND Registered Nurse | DX: K58.2 Mixed irritable bowel syndrome (principal); Z87.898 Personal history of other specified conditions; Z83.79 Family history of other diseases of the digestive system | CPT/HCPCS: 83993 ==

== ENCOUNTER 2024-03-21 15:58 | Outpatient (CLI) | payer OTHER | END 2024-03-21 15:59 | disposition home or self-care (01) | LOC: LAB.R 15:58 | PROVIDERS: ATTEND Registered Nurse | DX: R10.9 Unspecified abdominal pain (principal); K92.1 Melena; R61 Generalized hyperhidrosis; R25.1 Tremor, unspecified; K58.2 Mixed irritable bowel syndrome; Z83.79 Family history of other diseases of the digestive system; R00.0 Tachycardia, unspecified; R23.2 Flushing | CPT/HCPCS: 81599; 83835 ==